=== PATIENT | male | born 1980 | race African-American/Black ===

== ENCOUNTER 2019-11-19 12:18 | Inpatient (IN) | payer MEDICARE ==
[~2019-11-19] VITALS: Ht 172.7 cm; Wt 154.5 kg
[2019-11-19 13:37] LABS: BASOPHILS 0.1 % (0-2); EOSINOPHILS 0.5 % (0-7); HEMATOCRIT 44.5 % (42.0-54.0); HEMOGLOBIN 14.2 g/dL (13.5-17.5); IMMATURE GRANULOCYTES 0.2 % (0-5); LYMPHOCYTES 18.1 % (15-50); MCH 30.2 pg (26.0-34.0); MCHC 31.9 g/dL (31.0-37.0); MCV 94.7 fL (80.0-100.0); MEAN PLATELET VOLUME 8.2 fL (7.4-10.4); MONOCYTES 6.1 % (2-11); PLATELET COUNT 313 10x3/uL (130-400); RDW 15.2 % (11.5-14.5); WBC 8.4 10x3/uL (4.8-10.8)
[2019-11-19 13:45] LABS: CALC OSMOLALITY 272 mosm/kg (275-300); CALCIUM 8.1 mg/dL (8.5-10.1); CARBON DIOXIDE 29.9 mmol/L (21.0-32.0); CHLORIDE - SERUM 101 mmol/L (98-107); CREATININE - SERUM 1.1 mg/dL (0.6-1.3); GLUCOSE 99 mg/dL (74-106); SODIUM 137 mmol/L (136-145); UREA NITROGEN 9 mg/dL (7-18); eGFR NON AFRICAN AMERICAN 78 mL/min (90-120)
[2019-11-19 13:50] LABS: ALKALINE PHOSPHATASE 100 U/L (30-120); ALT (SGPT) 14 U/L (10-68); BILIRUBIN - TOTAL 0.74 mg/dL (0.2-1.3); PROTEIN - SERUM 8.3 g/dL (6.4-8.2)
[2019-11-19 15:20] VITALS: BP 152/62; Ht 172.7 cm; Wt 154.5 kg
--- NOTE | 2019-11-19 18:24 | NUR ---
PATIENT IN BED WITH IV INTACT. NO COMPLAINTS OR SIGNS OF DISTRESS. TOLERATED DIET WITH NO PROBLEMS. LEFT HAND SWOLLEN AND RED. STATES NO PAIN. WILL CONTINUE TO MONITOR. CALL LIGHT WITHIN REACH.
[2019-11-19 18:29] VITALS: BP 152/62
[2019-11-19 21:49] VITALS: BP 115/57
[2019-11-20 01:49] VITALS: BP 125/70
--- NOTE | 2019-11-20 02:45 | NUR ---
PT RESTING IN BED. EYES CLOSED. NO SIGNS OF DISTRESS. BREATHING EVEN AND UNLABORED. IV SITE RT AC DRESSING CLEAN DRY AND INTACT. NO SIGNS OF INFECTION OR INFULTRATION. LUNG SOUNDS CLEAR. BOWEL SOUNDS ACTIVE. LT HAND AND ARM SWELLING AND REDDNESS. WILL CONTINUE PLAN OF CARE. CALL LIGHT IN REACH. BED LOWERED AND LOCKED. BED RAILS UPX2.
--- NOTE | 2019-11-20 03:39 | NUR ---
I have reviewed this patient and I concur with the Shift Assessment completed by the Licensed Practical Nurse today this shift.
[2019-11-20 04:34] LABS: BASOPHILS 0.2 % (0-2); EOSINOPHILS 0.7 % (0-7); HEMATOCRIT 38.1 % (42.0-54.0); IMMATURE GRANULOCYTES 0.2 % (0-5); LYMPHOCYTES 15.4 % (15-50); MCH 29.9 pg (26.0-34.0); MCHC 31.5 g/dL (31.0-37.0); MCV 94.8 fL (80.0-100.0); MEAN PLATELET VOLUME 8.4 fL (7.4-10.4); MONOCYTES 6.9 % (2-11); NEUTROPHILS 76.6 % (40-80); PLATELET COUNT 311 10x3/uL (130-400); RBC 4.02 10x6/uL (4.20-6.10); RDW 15.5 % (11.5-14.5); WBC 8.5 10x3/uL (4.8-10.8)
[2019-11-20 05:00] LABS: ALBUMIN 2.5 g/dL (3.4-5.0); ALKALINE PHOSPHATASE 83 U/L (30-120); ALT (SGPT) 9 U/L (10-68); BILIRUBIN - TOTAL 0.52 mg/dL (0.2-1.3); CALC OSMOLALITY 273 mosm/kg (275-300); CALCIUM 7.5 mg/dL (8.5-10.1); CARBON DIOXIDE 29.5 mmol/L (21.0-32.0); CHLORIDE - SERUM 103 mmol/L (98-107); CREATININE - SERUM 1.1 mg/dL (0.6-1.3); GLUCOSE 123 mg/dL (74-106); POTASSIUM - SERUM 3.9 mmol/L (3.5-5.1); PROTEIN - SERUM 7.1 g/dL (6.4-8.2); SODIUM 137 mmol/L (136-145); UREA NITROGEN 11 mg/dL (7-18); eGFR NON AFRICAN AMERICAN 78 mL/min (90-120)
[2019-11-20 06:01] VITALS: BP 108/59
--- NOTE | 2019-11-20 08:00 | NUR ---
ASSESSMENT PER FLOW SHEET. PATIENT IS WITHOUT DISTRESS. ASSISTED TO BATHROOM AND HE IS SITTING IN CHAIR. DOOR OPEN TO MONITOR FOR NEEDS.CALL LIGHT IN REACH
[2019-11-20 09:37] VITALS: BP 119/60
[2019-11-20 13:42] VITALS: BP 132/68
[2019-11-20 17:16] VITALS: BP 126/68
[2019-11-20 20:00] VITALS: BP 131/66
--- NOTE | 2019-11-20 20:15 | NUR ---
A&O X 4. AMBULATES INDEPENDENTLY. DENIES N/V/PAIN. NO NEEDS VOICED AT THIS TIME, CTM.
[2019-11-21] VITALS: BP 114/68
--- NOTE | 2019-11-21 01:17 | NUR ---
I have reviewed this patient and I concur with the Shift Assessment completed by the Licensed Practical Nurse today this shift.
[2019-11-21 04:00] VITALS: BP 117/63
--- NOTE | 2019-11-21 06:24 | NUR ---
I have reviewed this patient and I concur with the Shift Assessment completed by the Licensed Practical Nurse today this shift.
--- NOTE | 2019-11-21 08:06 | NUR ---
ALERT AND ORIENTED TO SELF AND FAMILIAR FACES DUE TO DEVELPMENTAL DISAABILITY. IV TO RIGHT ARM WITH EDEMA NOTED. FLUIDS HELD AT THIS TIME. NO EDEMA NOTED TO LEFT ARM W/O WARMTH OR ERRYTHEMA. UP ADLIB TI BATHROOM AND ENCOURAGED TO USE CALL LIGHT FOR ASSSIT.
[2019-11-21 08:36] LABS: BASOPHILS 0.1 % (0-2); IMMATURE GRANULOCYTES 0.2 % (0-5); LYMPHOCYTES 12.7 % (15-50); MCH 30.2 pg (26.0-34.0); MCHC 31.7 g/dL (31.0-37.0); MCV 95.3 fL (80.0-100.0); MEAN PLATELET VOLUME 8.4 fL (7.4-10.4); MONOCYTES 6.4 % (2-11); NEUTROPHILS 79.6 % (40-80); PLATELET COUNT 355 10x3/uL (130-400); RDW 15.5 % (11.5-14.5)
[2019-11-21 08:43] LABS: CALC OSMOLALITY 269 mosm/kg (275-300); CALCIUM 7.6 mg/dL (8.5-10.1); CARBON DIOXIDE 29.6 mmol/L (21.0-32.0); CHLORIDE - SERUM 101 mmol/L (98-107); CREATININE - SERUM 1.1 mg/dL (0.6-1.3); GLUCOSE 101 mg/dL (74-106); POTASSIUM - SERUM 4.1 mmol/L (3.5-5.1); SODIUM 136 mmol/L (136-145); eGFR NON AFRICAN AMERICAN 78 mL/min (90-120)
[2019-11-21 08:44] LABS: UREA NITROGEN 8 mg/dL (7-18)
[2019-11-21 09:39] VITALS: BP 132/82
[2019-11-21] MEDS ORDERED: CLINDAMYCIN HC300 MG PO (11:31)
--- NOTE | 2019-11-21 12:29 | MORECARE ---
CASE MANAGEMENT DISCHARGE SUMMARY PATIENT: JL PRADHAN UNIT: [id number] ADM DATE: 11/19/19 AGE: 39 : [birth year] SEX: M ROOM/BED: D.2216 AUTHOR: ADORE CATHERINE PHYSICIAN: REFERRING PHYSICIAN: DAREN TIWARI MD DATE OF SERVICE: 11/21/19 Discharge Plan Patient Name: JL PRADHAN [facility] [facility] 1980 Planned Disposition: Home Anticipated Discharge Date: Discharge Date: Expected LOS: Initial Reviewer: [email or web address] Initial Review Date: 11/21/2019 Generated: 11/21/19 1:29 pm DCPIA - Discharge Planning Initial Assessment Updated by [email or web address]: Mary Machuca on 11/21/19 12:27 pm * Is the patient Alert and Oriented? Yes * PCP Myla Gomez * Pharmacy [facility] in [place] * Preadmission Environment Home with Family * ADLs Independent * Equipment None * List name and contact numbers for known caregivers / representatives who currently or will assist patient after discharge: Jamaal Pradhan - [facility] - [phone] * Verbal permission to speak to the caregivers and representatives has been obtained from the patient. Yes * Community resources currently utilized None * Additional services required to return to the preadmission environment? No * Can the patient safely return to the preadmission environment? Yes * Has this patient been hospitalized within the prior 30 days at any hospital? No Patient Name: JL PRADHAN Page [id number] at 1229 All edits/amendments must be made on the electronic document DICTATION DATE: 11/21/19 1229 CASINO ENFORCEMENT AGENT: LAURA 11/21/19 1229 RPT#: [id number] DC DATE: STATUS: ADM IN [facility] [address] [place] [address] END OF REPORT
--- NOTE | 2019-11-21 12:37 | MORECARE ---
CASE MANAGEMENT DISCHARGE SUMMARY PATIENT: JL PRADHAN UNIT: [id number] ADM DATE: 11/19/19 AGE: 39 : 76 SEX: M ROOM/BED: D.2216 AUTHOR: DORENEDOC PHYSICIAN: REFERRING PHYSICIAN: DAREN TIWARI MD DATE OF SERVICE: 11/21/19 Discharge Plan Patient Name: JL PRADHAN Facility: [facility]:[place] : 1980 Planned Disposition: Home Anticipated Discharge Date: Discharge Date: Expected LOS: Initial Reviewer: [email or web address] Initial Review Date: 11/21/2019 Generated: 11/21/19 1:36 pm Comments DCP- Discharge Planning Updated by [id number]: Mary Machuca on 11/21/19 11:[address] Patient Name: JL PRADHAN Admission Status: ER Accout number: [id number] Admission Date: 11-19-2019 : 1980 Admission Diagnosis:CELLULITIS OF LEFT UPPER LIMB Attending: DAREN TIWARI Current LOS: 2 Anticipated DC Date: Planned Disposition: Home Primary Insurance: MEDICARE A & B Discharge Planning Comments: CM met with patient concerning discharge needs. He lives with his father and asks me to call his family. I called his father, Jamaal. He states patient is independent with all his care. He states he has no DME. Declines need for home health. I informed the father that he will have an antibiotic that needs picked up at [facility]. He asks if the nurse can call when patient is ready for discharge, I informed unit coordinator. Home today, no needs identified. Scarrer: Mary Machuca DCPIA - Discharge Planning Initial Assessment Updated by [email or web address]: Mary Machuca on 11/21/19 12:27 pm * Is the patient Alert and Oriented? Yes * PCP Myla Gomez * Pharmacy [facility] in [place] * Preadmission Environment Home with Family * ADLs Independent * Equipment None * List name and contact numbers for known caregivers / representatives who currently or will assist patient after discharge: Jamaal Pradhan - father - [phone] * Verbal permission to speak to the caregivers and representatives has been obtained from the patient. Yes * Community resources currently utilized None * Additional services required to return to the preadmission environment? No * Can the patient safely return to the preadmission environment? Yes * Has this patient been hospitalized within the prior 30 days at any hospital? No Last DP export: 11/21/19 11:29 a Patient Name: JL PRADHAN Page 34615 at 1237 All edits/amendments must be made on the electronic document DICTATION DATE: 11/21/19 1236 SENIOR PRODUCTION MANAGER: LAURA 11/21/19 1236 RPT#: [id number] DC DATE: STATUS: ADM IN [facility] [address] [place] [address] END OF REPORT
--- NOTE | 2019-11-21 13:32 | NUR ---
IV DISCONTINUED WITH DISCHARGE INSTRUCTIONS GIVEN TO FATHER AND PATIENT WITH FATHER VERBALIZED UNDERSTANDING. STABLE AT TIME OF DEPARTURE.
--- NOTE | 2019-11-21 16:54 | MORECARE ---
CASE MANAGEMENT DISCHARGE SUMMARY PATIENT: JL PRADHAN UNIT: [id number] ADM DATE: 11/19/19 AGE: 39 : 76 SEX: M ROOM/BED: D.2216 AUTHOR: DORENEDOC PHYSICIAN: REFERRING PHYSICIAN: DAREN TIWARI MD DATE OF SERVICE: 11/21/19 Discharge Plan Patient Name: JL PRADHAN Facility: [facility]:[place] : 1980 Planned Disposition: Home Anticipated Discharge Date: Discharge Date: 11/21/2019 Expected LOS: 0 Initial Reviewer: [email or web address] Initial Review Date: 11/21/2019 Generated: 11/21/19 5:53 pm Comments DCP- Discharge Planning Updated by [email or web address]: Mary Machuca on 11/21/19 11:[address] Patient Name: JL PRADHAN Admission Status: ER Accout number: [id number] Admission Date: 11-19-2019 : 1980 Admission Diagnosis:CELLULITIS OF LEFT UPPER LIMB Attending: DAREN TIWARI Current LOS: 2 Anticipated DC Date: Planned Disposition: Home Primary Insurance: MEDICARE A & B Discharge Planning Comments: CM met with patient concerning discharge needs. He lives with his father and asks me to call his family. I called his father, Jamaal. He states patient is independent with all his care. He states he has no DME. Declines need for home health. I informed the father that he will have an antibiotic that needs picked up at [facility]. He asks if the nurse can call when patient is ready for discharge, I informed hris coordinator. Home today, no needs identified. Newcomer Hostess: Mary Machuca DCPIA - Discharge Planning Initial Assessment Updated by [email or web address]: Mary Machuca on 11/21/19 12:27 pm * Is the patient Alert and Oriented? Yes * PCP Myla Gomez * Pharmacy [facility] in [place] * Preadmission Environment Home with Family * ADLs Independent * Equipment None * List name and contact numbers for known caregivers / representatives who currently or will assist patient after discharge: Jamaal Pradhan - father - [phone] * Verbal permission to speak to the caregivers and representatives has been obtained from the patient. Yes * Community resources currently utilized None * Additional services required to return to the preadmission environment? No * Can the patient safely return to the preadmission environment? Yes * Has this patient been hospitalized within the prior 30 days at any hospital? No Last DP export: 11/21/19 11:37 a Patient Name: JL PRADHAN Page [id number] at 1654 All edits/amendments must be made on the electronic document DICTATION DATE: 11/21/191653 PHYSICAL MEDICINE TEACHER: LAURA 11/21/191653 RPT#: [id number] DC DATE:11/21/19 STATUS: DIS IN [facility] [address] [place] [address] END OF REPORT
== END 2019-11-21 13:33 | disposition home or self-care (01) | DRG 602 ==
LOC: D.ER 12:18 → D.MS 14:55
PROVIDERS: Family Medicine; ADMIT Internal Medicine Nephrology; ATTEND Internal Medicine Nephrology
DX: L03.114 Cellulitis of left upper limb (principal); J18.9 Pneumonia, unspecified organism; Z68.43 Body mass index [BMI] 50.0-59.9, adult; E66.01 Morbid (severe) obesity due to excess calories